=== PATIENT | male | born 1975 | race Caucasian/White ===

== ENCOUNTER 2017-12-24 21:51 | Emergency (ER) | payer OTHER, BC ==
[~2017-12-24] VITALS: Ht 165.1 cm; Wt 72.6 kg
[~2017-12-24 21:51] MED LIST: AMOXICILLIN500 MG PO; ATARAX25 MG PO; FLEXERIL10 MG PO; HYDROCODONE BIT1 T11 PO; IBU-8800 MG PO; MOTRIN800 MG PO; Motrin,Rufen800 MG PO; NORCO 5-325 TA1 EACH PO; Orphenadrine C100 MG PO; PREDNISONE20 MG PO; ROBAXIN750 MG PO; Tobradex 0.3-0.15 ML OPH; VICODIN ES 7501 TAB PO; VOLTAREN50 M1 PO; ZITHROMAX Z PA250 MG PO
[2017-12-24] MEDS ORDERED: Motrin,Rufen800 MG PO (23:20)
[2017-12-24] MEDS ORDERED: Orphenadrine C100 MG PO (23:20)
[2017-12-24] MEDS ORDERED: PREDNISONE20 M1 PO (23:20)
== END 2017-12-24 23:37 | disposition home or self-care (01) ==
LOC: ED 21:51
DX: S16.1XXA Strain of muscle, fascia and tendon at neck level, initial encounter (principal); Z79.899 Other long term (current) drug therapy; V49.88XA Car occupant (driver) (passenger) injured in other specified transport accidents, initial encounter; Y93.89 Activity, other specified; Y92.413 State road as the place of occurrence of the external cause; Y99.9 Unspecified external cause status

== ENCOUNTER → 2018-01-15 | Outpatient (CLI) | payer BC ==
[~2018-01-15] MED LIST changes: +PREDNISONE20 M1 PO
[2018-01-15 09:07] LABS: HEMATOCRIT 44.4 % (42.0-52.0); HEMOGLOBIN 15.4 g/dl (14.0-18.0); MEAN CELL VOLUME 85.4 fl (80.0-94.0); MEAN CORPUSCULAR HGB 29.6 pg (27.0-31.0); MEAN CORPUSCULAR HGB CONC 34.7 g/dl (33.0-37.0); MEAN PLATELET VOLUME 9.3 fl (9.6-12.3); RED BLOOD COUNT 5.2 10*6/uL (4.50-5.90); RED CELL DISTRI WIDTH 12.5 % (0-14.5); WHITE BLOOD COUNT 6.7 10*3/uL (4.8-10.8)
[2018-01-15 09:41] LABS: ALBUMIN 3.6 gm/dl (3.1-4.5); ALKALINE PHOSPHATASE 74 U/L (45-117); BUN 10 mg/dl (7-24); CHLORIDE 104 mmol/L (98-107); CHOLESTEROL 162 mg/dL (<200); CREATININE 1.25 mg/dL (0.70-1.30); HDL CHOLESTEROL 40 mg/dl (40-60); LDL CHOLESTEROL 104 mg/dL (9-159); POTASSIUM 4.1 mmol/L (3.5-5.1); SGOT/AST 17 IU/L (3-35); SGPT/ALT 20 U/L (12-78); SODIUM 141 mmol/L (136-145); TOTAL PROTEIN 7.2 gm/dL (6.4-8.2); TRIGLYCERIDES 92 mg/dl (<150); VLDL CHOLESTEROL 18 mg/dL (6-40)
== END | disposition home or self-care (01) ==
LOC: LAB 08:50
PROVIDERS: Family Medicine
DX: E78.00 Pure hypercholesterolemia, unspecified (principal); M54.5 Low back pain; R53.83 Other fatigue

== ENCOUNTER 2018-06-13 19:37 | Emergency (ER) | payer BC ==
[~2018-06-13] VITALS: Ht 165.1 cm; Wt 71.7 kg
== END 2018-06-13 21:09 | disposition home or self-care (01) ==
LOC: ED 19:37
DX: H18.822 Corneal disorder due to contact lens, left eye (principal); F17.200 Nicotine dependence, unspecified, uncomplicated

== ENCOUNTER 2019-07-13 21:19 | Emergency (ER) | payer BC ==
[~2019-07-13] VITALS: Ht 165.1 cm; Wt 81.6 kg
== END 2019-07-13 22:50 | disposition home or self-care (01) ==
LOC: ED 21:19
DX: M20.011 Mallet finger of right finger(s) (principal); Z79.899 Other long term (current) drug therapy

== ENCOUNTER 2019-08-13 18:35 | Emergency (ER) | payer BC ==
[~2019-08-13] VITALS: Ht 165.1 cm; Wt 81.6 kg
[2019-08-13] MEDS ORDERED: NAPROSYN500 MG PO (20:25)
== END 2019-08-13 20:33 | disposition home or self-care (01) ==
LOC: ED 18:35
DX: S29.011A Strain of muscle and tendon of front wall of thorax, initial encounter (principal); Z79.899 Other long term (current) drug therapy; X50.1XXA Overexertion from prolonged static or awkward postures, initial encounter; Y93.89 Activity, other specified; Y92.89 Other specified places as the place of occurrence of the external cause; Y99.8 Other external cause status

== ENCOUNTER → 2020-03-20 | Outpatient (CLI) | payer BC ==
[~2020-03-20] MED LIST changes: +NAPROSYN500 MG PO
== END | disposition home or self-care (01) ==
LOC: US 12:30
DX: K76.9 Liver disease, unspecified (principal); R79.89 Other specified abnormal findings of blood chemistry; N18.3 Chronic kidney disease, stage 3 (moderate)

== ENCOUNTER 2022-07-03 10:32 | Emergency (ER) | payer BC ==
[~2022-07-03] VITALS: Ht 165.1 cm; Wt 81.6 kg
[2022-07-03] MEDS ORDERED: VOLTAREN ARTHRI20 GM T (12:06)
== END 2022-07-03 12:13 | disposition home or self-care (01) ==
LOC: ED 10:32
DX: M25.511 Pain in right shoulder (principal); M25.561 Pain in right knee

== ENCOUNTER → 2022-07-15 | Outpatient (CLI) | payer BC ==
[~2022-07-15] MED LIST changes: +VOLTAREN ARTHRI20 GM T
[2022-07-15 11:35] LABS: MEAN CELL VOLUME 90.1 fl (80.0-94.0); MEAN CORPUSCULAR HGB CONC 33.3 g/dl (33.0-37.0); MEAN PLATELET VOLUME 9.1 fl (9.6-12.3); RED BLOOD COUNT 6.94 10*6/uL (4.50-5.90); RED CELL DISTRI WIDTH 16.9 % (0-14.5)
[2022-07-15 11:39] LABS: HEMATOCRIT 62.5 % (42.0-52.0)
[2022-07-15 11:55] LABS: CREATININE 1.69 mg/dL (0.70-1.30); POTASSIUM 4.5 mmol/L (3.5-5.1); TOTAL PROTEIN 7.8 gm/dL (6.4-8.2)
== END | disposition home or self-care (01) ==
LOC: LAB 10:50
PROVIDERS: ATTEND Family Medicine
DX: Z13.220 Encounter for screening for lipoid disorders (principal)